=== PATIENT | male | born 1960 | race Caucasian/White ===

== ENCOUNTER → 2017-01-24 | Outpatient (CLI) | payer BC ==
--- NOTE | 2017-01-24 10:39 | CARD ---
APPROVED REPORT EXAM: Two-dimensional and M-mode echocardiogram with Doppler and color Doppler. Other Information Quality : GoodHR: 65bpm Rhythm : NSR INDICATION Hypertension/HCVD Chest Pain 2D DIMENSIONS RVDd2.9 (2.9-3.5cm)Left Atrium(2D)3.0 (1.6-4.0cm) IVSd0.6 (0.7-1.1cm)Aortic Root(2D)3.3 (2.0-3.7cm) LVDd4.9 (3.9-5.9cm)LVOT Diameter2.4 (1.8-2.4cm) PWd0.8 (0.7-1.1cm)LVDs3.4 (2.5-4.0cm) FS (%) 31.8 %SV68.5 ml LVEF(%)59.7 (>50%) Mitral Valve MV E Gltxsxfw98.4cm/sMV E Peak Gr.3mmHg MV DECEL [id number] A Uqlhafga35.9cm/s MV E Mean Gr.1mmHgE/A Ratio0.9 MV A [id number] Pulmonary Valve PV Peak Rsroihsu911.2cm/s Tricuspid Valve TR P. Ryzjfeni597se/sTR Peak Gr.27mmHg Pulmonary Vein S1 Mpslibna42.0cm/sD2 Momrbjtd71.8cm/s PVa [id number] LEFT VENTRICLE The left ventricle is normal size. There is normal left ventricular wall thickness. The left ventricu lar systolic function is normal and the ejection fraction is within normal range. The Ejection Fracti on is 60-65%. There is normal LV segmental wall motion. Transmitral Doppler flow pattern is Grade I-a bnormal relaxation pattern. RIGHT VENTRICLE The right ventricle is normal size. There is normal right ventricular wall thickness. The right ventr icular systolic function is normal. ATRIA The left atrium size is normal. The right atrium size is normal. The interatrial septum is intact wit h no evidence for an atrial septal defect or patent foramen ovale as noted on 2-D or Doppler imaging. AORTIC VALVE The aortic valve is thickened. The aortic valve is trileaflet. Doppler and Color Flow revealed no sig nificant aortic regurgitation. There is no significant aortic valvular stenosis. MITRAL VALVE The mitral valve leaflets are mildly thickened. There is no evidence of mitral valve prolapse. There is no mitral valve stenosis. Doppler and Color Flow revealed trace mitral valve regurgitation. TRICUSPID VALVE Doppler and Color Flow revealed trace tricuspid regurgitation. The pulmonary artery systolic pressure is estimated at 30 mmHg. PULMONIC VALVE Doppler and Color Flow revealed trace pulmonic valvular regurgitation. There is no pulmonic valvular stenosis. GREAT VESSELS The aortic root is normal in size. The ascending aorta is normal in size. The pulmonary artery is nor mal. The IVC is normal in size and collapses >50% with inspiration. PERICARDIAL EFFUSION There is no evidence of significant pericardial effusion. Critical Notification Critical Value: No <Conclusion> The left ventricle is normal size. The left ventricular systolic function is normal and the ejection fraction is within normal range. The Ejection Fraction is 60-65%. There is no significant aortic valvular stenosis. Doppler and Color Flow revealed no significant aortic regurgitation. Doppler and Color Flow revealed trace mitral valve regurgitation. Doppler and Color Flow revealed trace tricuspid regurgitation. The pulmonary artery systolic pressure is estimated at 30 mmHg.
== END | disposition home or self-care (01) ==
LOC: ECHO 09:02
PROVIDERS: ATTEND Internal Medicine Cardiovascular Disease
DX: I10 Essential (primary) hypertension (principal); R07.9 Chest pain, unspecified; I08.3 Combined rheumatic disorders of mitral, aortic and tricuspid valves
CPT/HCPCS: 93306